=== PATIENT | female | born 1965 | race Caucasian/White ===

== ENCOUNTER → 2025-01-23 | Outpatient (CLI) | payer MEDICAID, SELFPAY ==
--- NOTE | 2025-01-23 14:00 | XR_ITS ---
Examination: CT chest, without intravenous contrast. Sagittal and coronal 2-D reconstructions. Exam date and time: January 23, 2025, 1408 hours, comparison April 23, 2023 INDICATIONS: Diagnosis coccidiomycosis, multiple pulmonary nodules on CT chest April 23, 2023 CTDI:vol (mGy) 11.2 DLP: (mGycm) 431 Technique: Multiple 3.0 mm axial sections of the chest to been obtained. Bone and lung density settings are obtained. Sagittal and coronal 2-D reconstructions have been obtained. Low dose protocols were performed. One or more of the following dose reduction techniques were used; automated exposure control, adjustment of the mA and/or KV according to patient size, use of iterative reconstruction technique. Findings: No thoracic aortic aneurysm dilatation Pulmonary artery segments are not enlarged. No paratracheal tracheobronchial or bronchopulmonary adenopathy. No new pulmonary nodules No pneumonia or pulmonary edema No pleural disease Visualized liver or spleen appear unremarkable No gallstones identified IMPRESSION: Stable pulmonary nodules, no new pulmonary nodules No pneumonia or pulmonary edema or pleural disease
== END | disposition home or self-care (01) ==
LOC: CCTX 13:50
PROVIDERS: PCP Nurse Practitioner Family; Referring Provider Internal Medicine Cardiovascular Disease; Visit Provider Internal Medicine Cardiovascular Disease
DX: R91.8 Other nonspecific abnormal finding of lung field (principal)
CPT/HCPCS: 71250